=== PATIENT | female | born 1995 | race African-American/Black ===

== ENCOUNTER 2021-12-01 21:44 | Emergency (ER) | payer SELFPAY | END 2021-12-01 22:57 | disposition home or self-care (01) | LOC: ERS 21:44 | DX: R42 Dizziness and giddiness (principal) | CPT/HCPCS: 99283 ==

== ENCOUNTER 2022-03-20 23:39 | Emergency (ER) | payer BC, SELFPAY | END 2022-03-21 01:02 | disposition home or self-care (01) | LOC: ERS 23:39 | DX: J20.8 Acute bronchitis due to other specified organisms (principal); Z20.822 Contact with and (suspected) exposure to COVID-19 | CPT/HCPCS: 99283; U0003; U0005 ==

== ENCOUNTER 2022-05-04 22:48 | Emergency (ER) | payer BC | END 2022-05-05 02:53 | disposition home or self-care (01) | LOC: ERS 22:48 | DX: H66.91 Otitis media, unspecified, right ear (principal) | CPT/HCPCS: 99282 ==

== ENCOUNTER 2022-05-08 19:25 | Emergency (ER) | payer BC | END 2022-05-08 21:09 | disposition left against medical advice (07) | LOC: ERS 19:25 | DX: Z53.21 Procedure and treatment not carried out due to patient leaving prior to being seen by health care provider (principal) ==

== ENCOUNTER 2022-06-08 22:11 | Emergency (ER) | payer BC | END 2022-06-08 23:06 | disposition home or self-care (01) | LOC: ERS 22:11 | DX: H65.91 Unspecified nonsuppurative otitis media, right ear (principal); H73.91 Unspecified disorder of tympanic membrane, right ear | CPT/HCPCS: 99282 ==

== ENCOUNTER 2022-08-17 18:26 | Emergency (ER) | payer BC ==
[2022-08-17] MEDS ORDERED: Ketorolac Tromethamine 30 MG/ML VIAL ONE (19:33)
== END 2022-08-17 21:25 | disposition home or self-care (01) ==
LOC: ERS 18:26
DX: M54.6 Pain in thoracic spine (principal)
CPT/HCPCS: 72072; 96372; J1885

== ENCOUNTER 2022-09-12 20:12 | Emergency (ER) | payer BC ==
[~2022-09-12 20:12] MED LIST: Iopamidol-370 76% 500 ML MDV (1 ML CHARGE) ONE
[2022-09-12 20:30] LABS: #Basophils 0.1 thou/uL (0.0-0.2); #Eosinphils 0.1 thou/uL (0.0-0.7); #Neutrophils 6.6 thou/uL (1.40-6.50); %Basophils 0.5 % (0.0-1.0); %Eosinophils 1.1 % (0.0-10.0); %Lymphocytes 29.2 % (21.0-51.0); %Monocytes 8.9 % (0.0-10.0); %Neutrophils 59.9 % (42.0-75.0); Hematocrit 42.4 % (36.0-47.0); Hemoglobin 14.2 g/dL (12.0-16.0); Mean Corpuscular HGB CONC 33.5 g/dL (32.0-36.0); Mean Corpuscular Hemoglobin 30.3 pg (27.0-31.0); Mean Corpuscular Volume 90.6 fl (78.0-98.0); Mean Platelet Volume 9.8 fL (7.4-10.4); Platelet Count 231 10x3/uL (130-400); RBC Distribution Width 13.2 % (11.5-14.5); Red Blood Cell (RBC) Count 4.68 mill/uL (4.20-5.40)
[2022-09-12 20:38] LABS: BHCG - Serum Negative (NEGATIVE); Pregs Control Background? CLEAR/WHITE (CLR/WHITE); Pregs Control Bar Appear? YES (CONTROL BAR)
[2022-09-12 20:42] LABS: Bilirubin Negative (Negative); Blood, Urine Negative (Negative); CAUTI Indications for Culture Pelvic or flank pain; Clarity Turbid (Clear); Glucose, Urine (Dipstick) 100 mg/dL (Negative); Ketone, Urine Negative (Negative); Leukocyte 25 Leu/uL (Negative); Nitrite Negative (Negative); Protein, Urine (Dipstick) Negative (Neg-Trace); RBC/HPF 0-3 HPF (0-3); Specific Gravity, Urine 1.029 (1.002-1.036); Urobilinogen Normal mg/dL (Less than 2); WBC/HPF 0-3 HPF (0-3); pH, Urine 5.5 (5.0-9.0)
[2022-09-12 20:51] LABS: Bacteria/HPF 2+ HPF (None Seen)
[2022-09-12 20:53] LABS: Urine Culture Reflex No No
[2022-09-12 20:53] LABS: ALT (SGPT) 9 U/L (8-55); AST (SGOT) 9 U/L (5-34); Albumin 3.5 g/dL (3.5-5.0); Alkaline Phosphatase 45 U/L (40-110); Anion Gap 9 mmol/L (10-20); BUN (Urea Nitrogen) 9 mg/dL (7.0-18.7); Bilirubin, Total 0.5 mg/dL (0.2-1.2); Calc. Creatinine Clearance 0 mL/min (70-130); Calcium 8.1 mg/dL (7.8-10.44); Carbon Dioxide 24 mmol/L (22-29); Chloride 110 mmol/L (98-107); Estimated GFR 124; Globulin 2.3 g/dL (2.4-3.5); Glucose 95 mg/dL (70-105); Potassium 3.7 mmol/L (3.5-5.1); Protein, Total 5.8 g/dL (6.0-8.3); Sodium 139 mmol/L (136-145)
[2022-09-12 21:54] LABS: SARS-CoV-2 NAA Rapid Test Not Detected (NotDetected)
[2022-09-12] MEDS ORDERED: Ondansetron PF 4 MG/2 ML Vial ONE (22:28)
== END 2022-09-12 23:47 | disposition home or self-care (01) ==
LOC: ERS 20:12
DX: R10.31 Right lower quadrant pain (principal); Z20.822 Contact with and (suspected) exposure to COVID-19
CPT/HCPCS: 36415; 74177; 80053; 81001; 84703; 85025; J2405; Q9967

== ENCOUNTER 2022-09-14 22:10 | Emergency (ER) | payer BC ==
[2022-09-14 23:01] LABS: Bacteria/HPF None Seen HPF (None Seen); Bilirubin Negative (Negative); Blood, Urine Negative (Negative); CAUTI Indications for Culture Pelvic or flank pain; Clarity Clear (Clear); Glucose, Urine (Dipstick) Normal (Negative); Ketone, Urine Negative (Negative); Leukocyte Negative Leu/uL (Negative); Nitrite Negative (Negative); Protein, Urine (Dipstick) 10 mg/dL (Neg-Trace); RBC/HPF 0-3 HPF (0-3); Specific Gravity, Urine 1.034 (1.002-1.036); Squamous Epithelial 0-3 HPF (0-3); Urobilinogen Normal mg/dL (Less than 2); WBC/HPF 0-3 HPF (0-3)
[2022-09-14 23:02] LABS: Urine Culture Reflex No No
[2022-09-14 23:12] LABS: BHCG - Serum Negative (NEGATIVE); Pregs Control Background? CLEAR/WHITE (CLR/WHITE); Pregs Control Bar Appear? YES (CONTROL BAR)
== END 2022-09-14 23:22 | disposition home or self-care (01) ==
LOC: ERS 22:10
DX: H65.92 Unspecified nonsuppurative otitis media, left ear (principal); H73.92 Unspecified disorder of tympanic membrane, left ear
CPT/HCPCS: 36415; 81001; 84703; 99284

== ENCOUNTER 2022-11-18 18:28 | Emergency (ER) | payer BC ==
[2022-11-18 18:54] LABS: #Basophils 0.1 thou/uL (0.0-0.2); #Eosinphils 0.2 thou/uL (0.0-0.7); #Monocytes 0.8 thou/uL (0.11-0.59); #Neutrophils 6.1 thou/uL (1.40-6.50); %Basophils 0.5 % (0.0-1.0); %Eosinophils 1.5 % (0.0-10.0); %Lymphocytes 28.8 % (21.0-51.0); %Monocytes 7.8 % (0.0-10.0); %Neutrophils 61.1 % (42.0-75.0); Hematocrit 36.8 % (36.0-47.0); Hemoglobin 12.4 g/dL (12.0-16.0); Mean Corpuscular HGB CONC 33.7 g/dL (32.0-36.0); Mean Corpuscular Hemoglobin 30.7 pg (27.0-31.0); Mean Corpuscular Volume 91.1 fl (78.0-98.0); Mean Platelet Volume 9.2 fL (7.4-10.4); Platelet Count 303 10x3/uL (130-400); RBC Distribution Width 12.8 % (11.5-14.5); Red Blood Cell (RBC) Count 4.04 mill/uL (4.20-5.40); White Blood Cell (WBC) Count 9.9 10x3/uL (4.8-10.8)
[2022-11-18 19:02] LABS: BHCG - Serum POSITIVE (NEGATIVE); Pregs Control Background? CLEAR/WHITE (CLR/WHITE); Pregs Control Bar Appear? YES (CONTROL BAR)
[2022-11-18] MEDS ORDERED: Acetaminophen 500 MG TAB ONE (19:17)
[2022-11-18] MEDS ORDERED: Ondansetron ODT 4 MG TAB ONE (19:17)
[2022-11-18 19:18] LABS: ALT (SGPT) 9 U/L (8-55); AST (SGOT) 10 U/L (5-34); Albumin 4.4 g/dL (3.5-5.0); Alkaline Phosphatase 50 U/L (40-110); Anion Gap 10 mmol/L (10-20); BUN (Urea Nitrogen) 10 mg/dL (7.0-18.7); Bilirubin, Total 0.5 mg/dL (0.2-1.2); Calc. Creatinine Clearance 0 mL/min (70-130); Calcium 9.1 mg/dL (7.8-10.44); Carbon Dioxide 21 mmol/L (22-29); Chloride 108 mmol/L (98-107); Estimated GFR 119; Globulin 2.5 g/dL (2.4-3.5); Glucose 105 mg/dL (70-105); Lipase 39 U/L (8-78); Potassium 3.8 mmol/L (3.5-5.1); Protein, Total 6.9 g/dL (6.0-8.3); Sodium 135 mmol/L (136-145)
[2022-11-18 19:53] LABS: Bacteria/HPF None Seen HPF (None Seen); Bilirubin Negative (Negative); Blood, Urine Negative (Negative); Clarity Clear (Clear); Glucose, Urine (Dipstick) Normal (Negative); Ketone, Urine Negative (Negative); Leukocyte Negative Leu/uL (Negative); Nitrite Negative (Negative); Protein, Urine (Dipstick) Negative (Neg-Trace); RBC/HPF 0-3 HPF (0-3); Specific Gravity, Urine 1.017 (1.002-1.036); Squamous Epithelial 0-3 HPF (0-3); WBC/HPF 0-3 HPF (0-3)
== END 2022-11-18 22:45 | disposition home or self-care (01) ==
LOC: ERS 18:28
DX: O99.891 Other specified diseases and conditions complicating pregnancy (principal); Z3A.01 Less than 8 weeks gestation of pregnancy
CPT/HCPCS: 36415; 76856; 80053; 81001; 83690; 84702; 84703; 85025; Q0162

== ENCOUNTER 2022-11-20 19:26 | Emergency (ER) | payer BC | END 2022-11-20 22:08 | disposition home or self-care (01) | LOC: ERS 19:26 | DX: O20.0 Threatened abortion (principal); Z3A.01 Less than 8 weeks gestation of pregnancy | CPT/HCPCS: 36415; 76856; 84702; 86850; 86900; 86901 ==

== ENCOUNTER 2022-11-22 18:09 | Emergency (ER) | payer BC | END 2022-11-22 20:15 | disposition home or self-care (01) | LOC: ERS 18:09 | DX: O26.891 Other specified pregnancy related conditions, first trimester (principal); Z3A.01 Less than 8 weeks gestation of pregnancy | CPT/HCPCS: 36415; 76856; 84702 ==

== ENCOUNTER 2022-11-24 19:20 | Emergency (ER) | payer BC | END 2022-11-24 22:09 | disposition home or self-care (01) | LOC: ERS 19:20 | DX: O99.891 Other specified diseases and conditions complicating pregnancy (principal); R10.9 Unspecified abdominal pain; Z3A.01 Less than 8 weeks gestation of pregnancy | CPT/HCPCS: 36415; 76856; 84702 ==

== ENCOUNTER 2022-12-15 11:09 | Emergency (ER) | payer BC ==
[2022-12-15] MEDS ORDERED: Ondansetron PF 4 MG/2 ML Vial ONE (12:11)
[2022-12-15] MEDS ORDERED: Acetaminophen 500 MG TAB ONE (12:11)
[2022-12-15 12:14] LABS: #Monocytes 0.6 thou/uL (0.11-0.59); #Neutrophils 6.8 thou/uL (1.40-6.50); %Basophils 0.5 % (0.0-1.0); %Eosinophils 0.3 % (0.0-10.0); %Lymphocytes 14.3 % (21.0-51.0); %Monocytes 6.8 % (0.0-10.0); %Neutrophils 77.9 % (42.0-75.0); Hematocrit 36.2 % (36.0-47.0); Hemoglobin 12.4 g/dL (12.0-16.0); Mean Corpuscular HGB CONC 34.3 g/dL (32.0-36.0); Mean Corpuscular Hemoglobin 30.9 pg (27.0-31.0); Mean Corpuscular Volume 90.3 fl (78.0-98.0); Mean Platelet Volume 9.7 fL (7.4-10.4); Platelet Count 276 10x3/uL (130-400); RBC Distribution Width 12.2 % (11.5-14.5); Red Blood Cell (RBC) Count 4.01 mill/uL (4.20-5.40); White Blood Cell (WBC) Count 8.7 10x3/uL (4.8-10.8)
[2022-12-15 12:38] LABS: ALT (SGPT) 7 U/L (8-55); AST (SGOT) 10 U/L (5-34); Albumin 4.4 g/dL (3.5-5.0); Alkaline Phosphatase 45 U/L (40-110); Anion Gap 11 mmol/L (10-20); BUN (Urea Nitrogen) 6 mg/dL (7.0-18.7); Bilirubin, Total 0.6 mg/dL (0.2-1.2); Calc. Creatinine Clearance 0 mL/min (70-130); Calcium 9.2 mg/dL (7.8-10.44); Carbon Dioxide 22 mmol/L (22-29); Chloride 106 mmol/L (98-107); Estimated GFR 127; Globulin 2.6 g/dL (2.4-3.5); Glucose 95 mg/dL (70-105); Potassium 3.7 mmol/L (3.5-5.1); Sodium 135 mmol/L (136-145)
[2022-12-15 12:43] LABS: Bilirubin Negative (Negative); Blood, Urine Negative (Negative); Clarity Extra Turbid (Clear); Glucose, Urine (Dipstick) Normal (Negative); Ketone, Urine Negative (Negative); Leukocyte Negative Leu/uL (Negative); Nitrite Negative (Negative); Protein, Urine (Dipstick) 30 mg/dL (Neg-Trace); Urobilinogen Normal mg/dL (Less than 2)
[2022-12-15 12:52] LABS: Pregnancy Test - Urine (BHCG) POSITIVE (Negative); Pregu Control Background? CLEAR/WHITE (CLR/WHITE); Pregu Control Bar Appear? YES (CONTROL BAR)
[2022-12-15 13:01] LABS: Bacteria/HPF 1+ HPF (None Seen); CAUTI Indications for Culture Pregnancy; RBC/HPF 0-3 HPF (0-3); WBC/HPF 0-3 HPF (0-3)
[2022-12-15 13:02] LABS: Urine Culture Reflex Yes Yes
== END 2022-12-15 14:40 | disposition home or self-care (01) ==
LOC: ERS 11:09
DX: O20.0 Threatened abortion (principal); Z3A.09 9 weeks gestation of pregnancy
CPT/HCPCS: 36416; 76801; 80053; 81001; 81025; 84702; 85025; 86850; 86900; 86901; 87086; 96374; J2405

== ENCOUNTER 2023-01-01 09:01 | Emergency (ER) | payer BC, MEDICAID ==
[2023-01-01] MEDS ORDERED: Promethazine HCl 25 MG in Sodium Chloride 0.9% 50 ML IVPB SCH (10:45)
[2023-01-01 10:57] LABS: Bacteria/HPF None Seen HPF (None Seen); Bilirubin Negative (Negative); Blood, Urine Negative (Negative); CAUTI Indications for Culture Pelvic or flank pain; Clarity Turbid (Clear); Glucose, Urine (Dipstick) 50 mg/dL (Negative); Ketone, Urine Negative (Negative); Leukocyte Negative Leu/uL (Negative); Nitrite Negative (Negative); Protein, Urine (Dipstick) 50 mg/dL (Neg-Trace); RBC/HPF 0-3 HPF (0-3); Specific Gravity, Urine 1.035 (1.002-1.036); WBC/HPF 0-3 HPF (0-3)
[2023-01-01 10:58] LABS: Urine Culture Reflex No No
[2023-01-01 12:08] LABS: #Eosinphils 0.1 thou/uL (0.0-0.7); #Monocytes 0.6 thou/uL (0.11-0.59); #Neutrophils 5.7 thou/uL (1.40-6.50); %Basophils 0.5 % (0.0-1.0); %Eosinophils 1.4 % (0.0-10.0); %Lymphocytes 18.7 % (21.0-51.0); %Monocytes 7.7 % (0.0-10.0); %Neutrophils 71.5 % (42.0-75.0); Hematocrit 34.4 % (36.0-47.0); Hemoglobin 11.7 g/dL (12.0-16.0); Mean Platelet Volume 9.8 fL (7.4-10.4); Platelet Count 287 10x3/uL (130-400); RBC Distribution Width 12.2 % (11.5-14.5); Red Blood Cell (RBC) Count 3.78 mill/uL (4.20-5.40)
[2023-01-01 12:30] LABS: ALT (SGPT) 7 U/L (8-55); AST (SGOT) 8 U/L (5-34); Albumin 3.6 g/dL (3.5-5.0); Alkaline Phosphatase 38 U/L (40-110); Anion Gap 11 mmol/L (10-20); BUN (Urea Nitrogen) 6 mg/dL (7.0-18.7); Bilirubin, Total 0.4 mg/dL (0.2-1.2); Calc. Creatinine Clearance 0 mL/min (70-130); Calcium 8.5 mg/dL (7.8-10.44); Carbon Dioxide 20 mmol/L (22-29); Chloride 109 mmol/L (98-107); Estimated GFR 130; Globulin 2.8 g/dL (2.4-3.5); Glucose 92 mg/dL (70-105); Potassium 3.6 mmol/L (3.5-5.1); Protein, Total 6.4 g/dL (6.0-8.3); Sodium 136 mmol/L (136-145)
== END 2023-01-01 13:05 | disposition home or self-care (01) ==
LOC: ERS 09:01
DX: O21.9 Vomiting of pregnancy, unspecified (principal); Z3A.09 9 weeks gestation of pregnancy
CPT/HCPCS: 36416; 80053; 81001; 84702; 85025; 96361; 96365; J2550

== ENCOUNTER 2024-03-14 13:50 | Emergency (ER) | payer BC, OTHER | END 2024-03-14 16:49 | disposition home or self-care (01) | LOC: ERS 13:50 | DX: G51.0 Bell's palsy (principal) | CPT/HCPCS: 93005; 99284 ==

== ENCOUNTER 2024-10-31 22:34 | Emergency (ER) | payer OTHER, SELFPAY ==
[2024-11-01] MEDS ORDERED: Metoclopramide HCl 10 MG (2 mL) VIAL ONE (00:07)
[2024-11-01] MEDS ORDERED: Ketorolac Tromethamine 30 MG (1 mL) VIAL ONE (00:07)
[2024-11-01] MEDS ORDERED: diphenhydrAMINE 50 MG/ML VIAL ONE (00:07)
[2024-11-01 00:30] LABS: #Basophils 0.05 10x3/uL (0.0-0.2); #Eosinophils 0.17 10x3/uL (0.0-0.7); #Monocytes 0.68 10x3/uL (0.11-0.59); #Neutrophils 5.39 10x3/uL (1.40-6.50); %Basophils 0.6 % (0.0-1.0); %Eosinophils 1.9 % (0.0-10.0); %Lymphocytes 28.9 % (21.0-51.0); %Monocytes 7.6 % (0.0-10.0); %Neutrophils 60.7 % (42.0-75.0); Hematocrit 40.7 % (36.0-47.0); Hemoglobin 13.2 g/dL (12.0-16.0); Mean Corpuscular Hemoglobin 29.1 pg (27.0-31.0); Mean Corpuscular Volume 89.8 fL (78.0-98.0); Platelet Count 289 10x3/uL (130-400); Red Blood Cell (RBC) Count 4.53 mill/uL (4.20-5.40); White Blood Cell (WBC) Count 8.89 10x3/uL (4.8-10.8)
[2024-11-01 00:52] LABS: BHCG - Serum Negative (NEGATIVE); Pregs Control Background? CLEAR/WHITE (CLR/WHITE); Pregs Control Bar Appear? YES (CONTROL BAR)
[2024-11-01 01:03] LABS: ALT (SGPT) 21 U/L (Less than 34); AST (SGOT) 21 U/L (11-34); Albumin 3.5 g/dL (3.1-4.5); Alkaline Phosphatase 63 U/L (40-110); Anion Gap 13 mmol/L (10-20); BUN (Urea Nitrogen) 9 mg/dL (7.0-18.7); Bilirubin, Total 0.3 mg/dL (0.3-1.2); Calc. Creatinine Clearance 0 mL/min (70-130); Calcium 8.7 mg/dL (7.8-10.44); Carbon Dioxide 22 mmol/L (22-29); Chloride 109 mmol/L (98-107); Globulin 2.9 g/dL (2.4-3.5); Glucose 90 mg/dL (70-105); Potassium 3.8 mmol/L (3.5-5.1); Sodium 140 mmol/L (136-145)
== END 2024-11-01 01:43 | disposition home or self-care (01) ==
LOC: ERS 22:34
DX: R51.9 Headache, unspecified (principal)
CPT/HCPCS: 80053; 84703; 85025; 96374; 96375; J1200; J1885; J2765